=== PATIENT | female | born 1990 | race Caucasian/White ===

== ENCOUNTER 2017-08-15 00:40 | Emergency (ER) | payer SELFPAY ==
[~2017-08-15] VITALS: Ht 160 cm; Wt 95.3 kg
[2017-08-15 00:49] VITALS: BP 163/63
--- NOTE | 2017-08-15 00:55 | NUR ---
PT TAKEN TO BED 10
--- NOTE | 2017-08-15 00:59 | NUR ---
27 Y/O F W/C/O L HEEL X 3 MTHS ON AND OFF. DENIES ANY INJURY OR MD HX. NO OTHER S/S OF DISTRESS NOTED AT THE MOMENT, ER MADE AWARE.
--- NOTE | 2017-08-15 01:06 | NUR ---
TALISHA DESOUZA AT BEDSIDE EVALUATING PT.
--- NOTE | 2017-08-15 01:52 | NUR ---
PT WAITING FOR XRAY AAOX4.
--- NOTE | 2017-08-15 02:10 | NUR ---
XRAY AT BEDSIDE
[2017-08-15 03:12] VITALS: BP 112/73
--- NOTE | 2017-08-15 03:12 | NUR ---
Patient discharged with v/s stable. Written and verbal after care instructions given and explained. Patient alert, oriented and verbalized understanding of instructions. Ambulatory with steady gait. All questions addressed prior to discharge. ID band removed. Patient advised to follow up with PMD OR RETURN TO ER IF CONDITION WORSENS. Rx of NAPROSYN given. Patient educated on indication of medication including possible reaction and side effects. Opportunity to ask questions provided and answered.
== END 2017-08-15 03:12 | disposition home or self-care (01) ==
LOC: MED 00:40
DX: M79.672 Pain in left foot (principal)
CPT/HCPCS: 73590; 73630; 81025; 99284; Q0092